=== PATIENT | female | born 1985 | race Caucasian/White ===

== ENCOUNTER 2022-08-24 00:18 | Day surgery (SDC) | payer BC, SELFPAY ==
--- NOTE | 2022-08-20 14:53 | PC.NURSE ---
Report to the Outpatient Waiting Room, entrance under the green pavilion located off [facility], at time _1015_ on date _08/24/22_. Planned Procedure Time: _1215__. Time changes happen often and if your time is changed the preop area will call you the afternoon before. - You and your visitor will be asked to self-screen and do not enter if you have any COVID symptoms. - A mask is optional within the hospital at this time. Patients may have clear liquids (water, carbonated beverages, clear teas, apple juice) until 3 hours prior to surgery with a maximum of 20 ounces. - No food from midnight until time of surgery - Infants may have breast milk until 4 hours before surgery, infant formula 6 hours prior to surgery. - Children will be allowed to drink immediately following surgery. If applicable, please bring a bottle or sippy cup to assist with drinking. Juice, water, soda, and popsicles are readily available. For infants on formula, please bring formula the day of surgery. Pacifiers are allowed. Take the following medications with a SIP of water the morning of surgery: _Synthroid AM____ DO NOT STOP ANY OF YOUR OTHER PRESCRIPTION MEDICATIONS PRIOR TO SURGERY ?EXCEPT THE FOLLOWING Medications to discontinue per physician __vitamins and supplements 3 days prior____ Date to take last dose Please no make-up, nail faroese, hairspray, perfume, deodorant, or body powder the day of surgery. No jewelry (including any body piercings) or valuables the day of surgery, leave them at home. Please take a shower or bath the night before, or the morning of, surgery with an antibacterial soap. Wear comfortable, loose fitting clothing. Children are encouraged to wear pajamas. - Jewelry must be removed prior to entering the operating room. Rings and piercings that are not removed may be cut off. - The hospital will not accept responsibility for valuables. - Please leave all valuables, including medications, at home the day of surgery. If you are going home after surgery, a licensed logging truck driver must drive you home. - NO public transportation without another adult if you receive anesthesia. - We recommend that an adult stay with you for 24 hours following discharge. - We also recommend that you do not drive, make important decision, drink alcoholic beverages, or take any drugs that were not prescribed by your health care provider for at least 24 hours after your discharge time. For Pediatric surgeries, we recommend two adults accompany the child home. Follow any additional instructions given to you from your surgeon. If you or anyone in your household have experienced Covid symptoms in the past week, please notify your surgeon or the nurse liaison at the phone number below for possible testing. Telephone instructions given to _Patient_and asked if any additional questions and then verbalized understanding. Patient advised to call surgeon office or pre surgery nurse liaison [phone] if any additional questions.
[2022-08-20 14:56] VITALS: BMI 36.3
[2022-08-24] VITALS (11 sets, daily range): BP systolic 109–125; BP diastolic 70–83; PULSE 37–66; RESP 10–16; TEMP 36.3–36.5; O2SAT 98–100
--- NOTE | 2022-08-24 07:47 | P.PNAN_ITS ---
Anes - Initial Pre Proc Eval Procedure: Operation Date: 08/24/22 12:15 Proposed Procedures p Diagnostic Laparoscopy, Bilateral Laparoscopic Salpingectomy with Mirena Intrauterine Device Removal - Melinda Stark DO Date/Time: 08/24/22 07:47 Surgeon: Melinda Stark DO Pre Op Diagnosis: desires sterilization Patient Data Age: 37 Gender: F Height: 1.57 m Weight: 90 kg Allergies Allergy/AdvReac Type Severity Reaction Status Date / Time No Known Allergies Allergy Verified 08/24/22 10:37 Home Medications Medication Instructions Recorded Confirmed Type levothyroxine 200 mcg tablet 200 mcg PO DAILY 08/20/22 08/20/22 History acetaminophen 500 mg capsule 500 mg PO Q6H PRN fever or pain 08/24/22 Rx #30 caps hydrocodone 5 mg-acetaminophen 325 1 tablet PO Q6H PRN pain #8 tabs 08/24/22 Rx mg tablet ibuprofen 600 mg tablet 600 mg PO Q6H PRN fever or pain 08/24/22 Rx #30 tabs polyethylene glycol 3350 17 17 g PO BID #119 grams 08/24/22 Rx gram/dose oral powder (Miralax) Patient hx anesthesia problems: none Family hx anesthesia problems: none Results Review: All pre-operative results and documents have been reviewed as part of the pre- operative evaluation. [facility], [facility] Past Medical History Medical History (Updated 08/24/22 @ 12:31 by Melinda Stark DO) Hypothyroidism Osteoarthritis PONV (postoperative nausea and vomiting) Surgical History Surgical History (Updated 08/24/22 @ 07:48 by Patel Esteban DO) History of thyroidectomy Social History Social History Smoking status: Never smoker Alcohol intake: current Drinks per week: 1 Substance use: never Substance use type: does not use Living arrangements: with family Spiritual care concerns: No Anes - Eval Final PreProcedure Day of Procedure 08/24/22 07:47 Patient weight: obese Heart: regular rate and rhythm Lungs: clear to auscultation Airway: Mallampati scale class II Neurological: alert and oriented Last oral intake: >/= 8 hours ASA classification: II Emergent: no Anesthetic plan: proceed Anesthesia type and monitoring: general ETT and standard monitoring Results Review: All pre-operative results and documents have been reviewed as part of the pre- operative evaluation. Informed Consent: The patient's anesthetic plan and its attendant risks and benefits were discussed with the patient/family/POA. Questions were solicited and answers provided to the satisfaction of the patient/family/POA.
[2022-08-24] MEDS: ACETAMINOPHEN 500 MG TABLET 1000 MG PO (10:45)
[2022-08-24] MEDS: GABAPENTIN 300 MG CAPSULE PO (10:45)
[2022-08-24] MEDS: LACTATED RINGERS 1,000 ML 30 ML IV CONT ×2 (10:50→14:29)
[2022-08-24] MEDS: SCOPOLAMINE 1.5 MG PATCH TRANSDERM (11:12)
--- NOTE | 2022-08-24 12:29 | WPDHPUPDATE1 ---
History and Physical Update Update Date/Time: 08/24/22 12:29 History and Physical has been reviewed, including an updated exam of the patient. There are NO changes in the patient's condition. Risks, benefits, and alternatives have been discussed and questions answered. Patient agrees to proceed with procedure.
--- NOTE | 2022-08-24 12:29 | PM.IMHP ---
H&P: HPI History of Present Illness Date/Time: 08/24/22 12:29 Chief Complaint: I'm here to have my tubes out Narrative: Consuelo presents desiring permanent sterilization and removal of her Mirena IUD with diagnostic laparoscopy, bilateral salpingectomy. Review of Systems Review of Systems: All systems reviewed & are unremarkable except as noted in HPI and below PMFSH Past Medical History Medical History (Updated 08/24/22 @ 12:31 by Melinda Stark DO) Hypothyroidism Osteoarthritis PONV (postoperative nausea and vomiting) Surgical History Surgical History (Updated 08/24/22 @ 07:48 by Patel Esteban DO) History of thyroidectomy Social History Social History Smoking status: Never smoker Alcohol intake: current Drinks per week: 1 Substance use: never Substance use type: does not use Living arrangements: with family Spiritual care concerns: No Meds Home Medications and Allergies Home Medications Medication Instructions Recorded Confirmed Type levothyroxine 200 mcg tablet 200 mcg PO DAILY 08/20/22 08/20/22 History Allergies Allergy/AdvReac Type Severity Reaction Status Date / Time No Known Allergies Allergy Verified 08/24/22 10:37 Vital Signs Vital Signs - 24 hr 08/24/22 10:58 Temperature 36.5 C Pulse Rate 55 L Respiratory Rate 16 Blood Pressure 125/83 Pulse Oximetry 100 Oxygen Delivery Room Air Exam Const: General: comfortable and no acute distress Eyes: General: appearance normal, both eyes and all related structures Neck: Neck: supple Resp: Effort & Inspection: normal respiratory effort Auscultation: clear to auscultation bilaterally Cardio: Rate: regular rate Rhythm: regular rhythm GI: GI Palp: Yes Soft to palpation Auscultation: normal bowel sounds Skin: General skin exam: normal color and no rashes or lesions noted Neuro: Speech: normal speech Motor exam (neuro): 5/5 motor strength present throughout Assessment and Plan Assessment and plan (1) Sterilization: Code(s): Z30.2 - Encounter for sterilization Status: Acute (2) Encounter for IUD removal: Code(s): Z30.432 - Encounter for removal of intrauterine contraceptive device Status: Acute Plan Mirena removal Diagnostic laparoscopy, bilateral salpingectomy Quality VTE Prophylaxis VTE prophylaxis: mechanical ordered
[2022-08-24] MEDS: FERRIC SUBSULFATE 8 ML SOLUTION WITH APPLICATOR TOPICAL (13:35)
--- NOTE | 2022-08-24 13:41 | W.PM.PROC2 ---
Procedure Note - Detailed Date of Procedure 08/24/22 Pre-op Diagnosis desires sterilization Post-op Diagnosis Same Procedure Performed diagnostic laparoscopy, bilateral salpingectomy, Mirena removal Surgeon Melinda Stark DO [employer] Anesthesia General Indications Desires permanent sterilization Findings Normal appearing vulva and vaginal canal. Large cervix. Extensive amount of ectropion on the cervix. Both IUD strings were visualized. Uterus sounded to 8cm. Internally, the liver and bowels were unremarkable. The pelvic organs were unremarkable. The right ovary contained a simple cyst. Description of Procedure Patient was taken to the operating room where she was placed under general anesthesia. She was prepped and draped in the normal sterile fashion in a dorsal lithotomy position. A time-out was performed. No preoperative antibiotics were indicated. Speculum was placed in the vagina and the cervix was visualized. The cervix was noted to be quite high. Once the cervix was visualized the posterior lip was grasped with a single-tooth tenaculum. The IUD strings were then grasped with the polyp forceps and the IUD was removed intact. The cervix was dilated to accommodate a uterine manipulator. The uterus was sounded to 8 cm. The manipulator was placed, gloves were changed and attention was then turned to the abdomen. The skin above the umbilicus was grasped with 2 penetrating towel clamps and the area was injected with local. A small incision was made and a Veress needle was introduced. The saline water drop test was performed to confirm intraperitoneal placement. The abdomen was filled with CO2 to a filling pressure of 15 mmHg. The Veress needle was then replaced with a 5 mm Optiview trocar. Survey of the abdomen revealed no evidence of bowel or vascular injury upon entry. The patient was then placed in steep Trendelenburg position. Additional port sites in the right and left lower quadrants were identified, injected and incised. 5 mm trocars were inserted under direct visualization. Starting on the right-hand side a small simple cyst in the ovary was noted this was drained using the monopolar hook from the LigaSure. The right tube was then elevated and was cauterized and transected off using the LigaSure. The specimen was passed out through the information services assistant port. The procedure was repeated in identical fashion on the left-hand side. Surgical pedicles were reinspected and found to be hemostatic. Survey of the abdomen and pelvis was unremarkable as noted above. The instruments and trocars were removed, the CO2 gas was allowed to escape. The abdominal incisions were closed with 4-0 Monocryl in a subcuticular fashion and covered with skin glue. The uterine manipulator was removed. Brisk bleeding from the ectropion of the cervix was noted therefore Monsel's was applied with good result. Patient was taken to the recovery room in stable condition. All instrument and sponge counts were correct at the conclusion of the procedure. Estimated Blood Loss 10 Drains No Packing No Pathology Yes Complications No immediate complications Condition Stable Disposition PACU
[2022-08-24] MEDS: fentaNYL CITRATE INJ (*CRX) 100 MCG/2 ML VIAL 25 MCG IV PUSH (14:14)
--- NOTE | 2022-08-24 14:31 | SUR.PHASEI ---
1415 DR. AGOSTO NOTIFIED RE: HR 40.
--- NOTE | 2022-08-24 14:32 | SUR.PHASEI ---
1430 DR. AGOSTO AT BEDSIDE FOR HR 34-35.
--- NOTE | 2022-08-24 14:35 | SUR.PHASEI ---
DR. AGOSTO GAVE 0.2 MG GLYCOPYRROLATE IV. HEARTRATE NOW IN 50'S.
[2022-08-24] MEDS: oxyCODONE HCL (*CRX) 5 MG TAB IR PO (15:16)
== END 2022-08-24 16:35 | disposition home or self-care (01) ==
PROVIDERS: Visit Provider Obstetrics & Gynecology Gynecologic Oncology
PROC: (CPT 49320; principal; 2022-08-24 12:15)
DX: Z30.2 Encounter for sterilization (principal); Z30.432 Encounter for removal of intrauterine contraceptive device; E89.0 Postprocedural hypothyroidism; E66.9 Obesity, unspecified; Z68.35 Body mass index [BMI] 35.0-35.9, adult
CPT/HCPCS: 58661; 58301; 88302; A9270; J1100; J2250; J2405; J2704; J3010; J7120